=== PATIENT | female | born 1980 | race Caucasian/White ===

== ENCOUNTER 2017-05-05 23:17 | Emergency (ER) | payer OTHER ==
[~2017-05-05] VITALS: Ht 157.5 cm; Wt 56.7 kg
[~2017-05-05 23:17] MED LIST: IRON65TA11 PO; PREN-385 PO
[2017-05-05 23:32] VITALS: BP 124/82
[2017-05-05] MEDS ORDERED: PHEN100C3 PO (23:43)
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
--- NOTE | 2017-05-06 00:10 | NUR ---
ER MD AT BEDSIDE PERFORMING AN ULTRASOUND. NO S/S OF DISTRESS NOTED AT THE MOMENT. VSS.
[2017-05-06 00:28] VITALS: BP 123/82
--- NOTE | 2017-05-06 00:28 | NUR ---
Patient discharged with v/s stable. Written and verbal after care instructions given and explained. Patient verbalized understanding. Police with in custody. All questions addressed prior to discharge. Advised to follow up with OBGYN OR RETURN TO ER IF CONDITON WORSENS.
== END 2017-05-06 00:28 ==
LOC: MED 23:17
DX: O26.891 Other specified pregnancy related conditions, first trimester (principal); G40.909 Epilepsy, unspecified, not intractable, without status epilepticus; O09.521 Supervision of elderly multigravida, first trimester
CPT/HCPCS: 99283

== ENCOUNTER 2017-06-07 00:50 | Inpatient (IN) | payer OTHER ==
[~2017-06-07] VITALS: Ht 157.5 cm; Wt 59.0 kg
[~2017-06-07 00:50] MED LIST changes: +PHEN100C3 PO
[2017-06-07 00:58] VITALS: BP 117/72
--- NOTE | 2017-06-07 01:05 | NUR ---
PT TAKEN TO BED 6
--- NOTE | 2017-06-07 01:06 | NUR ---
PATIENT PRESENTS TO ED WITH EPIGASTRIC PAIN RADIATING TO HER BACK, STARTED 3 HOURS AGO,WITH NAUSEA. , LMP MARCH 12. DENIES N/V/D; SKIN IS PINK/WARM/DRY; AAOX4 WITH EVEN AND STEADY GAIT; LUNGS CLEAR BL; HR EVEN AND REGULAR; PT DENIES ANY FEVER, CP, SOB, OR COUGH AT THIS TIME; PATIENT STATES PAIN OF 10/10 AT THIS TIME; PATIENT POSITIONED FOR COMFORT; HOB ELEVATED; BEDRAILS UP X2; BED DOWN. ER MD MADE AWARE OF PT STATUS.
--- NOTE | 2017-06-07 01:22 | NUR ---
RELAYED TO DR. MOLINA RESULT OF URINE DIPSTICK
--- NOTE | 2017-06-07 01:37 | NUR ---
Dr. Lara evaluating patient at bedside.
[2017-06-07] MEDS ORDERED: NACL 0.9% 500 ML IV ONE (01:39)
[2017-06-07] MEDS ORDERED: ALUMINUM HYD/MAG/SIMETHICONE 30 ML UDC PO ONE (01:40)
[2017-06-07] MEDS ORDERED: LIDOCAINE VISCOUS 2% 20 ML UDC PO ONE (01:40)
[2017-06-07] MEDS ORDERED: ONDANSETRON 4 MG/2 ML VIAL IVP ONE (01:40)
[2017-06-07] MEDS ORDERED: KETOROLAC 30 MG/ML VIAL IVP ONE (01:40)
[2017-06-07 02:01] LABS: BASOPHILS # (AUTO) 0.1 K/uL (0.00-0.22); HEMATOCRIT 38.1 % (36-48)
[2017-06-07 02:03] LABS: BASOPHILS % (AUTO) 0.9 % (0.0-2.0); EOSINOPHILS # (AUTO) 0.4 K/uL (0-0.4); EOSINOPHILS % (AUTO) 3.5 % (0.0-4.0); HEMOGLOBIN 12.4 g/dL (12.0-16.0); LYMPHOCYTES # (AUTO) 1.2 K/uL (2.5-16.5); LYMPHOCYTES % (AUTO) 10.3 % (20.5-51.1); MEAN CORPUSCULAR HEMOGLOBIN 28 pg (27-31); MEAN CORPUSCULAR HGB CONC 33 g/dL (33-37); MEAN CORPUSCULAR VOLUME 84 fL (80-94); MONOCYTES # (AUTO) 0.5 K/uL (0.8-1.0); MONOCYTES % (AUTO) 4.3 % (1.7-9.3); NEUTROPHILS # (AUTO) 9.1 K/uL (1.8-7.7); PLATELET COUNT (AUTO) 242 K/uL (140-450); RED BLOOD CELL COUNT(AUTO) 4.52 MIL/uL (4.20-5.40); RED CELL DISTRIBUTION WIDTH 13.6 % (11.6-13.7); WHITE BLOOD COUNT (AUTO) 11.3 K/uL (4.8-10.8)
[2017-06-07 02:07] LABS: ANION GAP 10.3 (8-16); CALCIUM 8.6 mg/dL (8.5-10.1); CARBON DIOXIDE 29.7 mmol/L (21-32); CREATININE 0.5 mg/dL (0.6-1.3)
[2017-06-07 02:14] LABS: TOTAL BILIRUBIN 0.9 mg/dL (0.0-1.0); TOTAL PROTEIN, SERUM 7.2 g/dL (6.4-8.2)
--- NOTE | 2017-06-07 02:19 | NUR ---
PT RETURN FROM ULTRASOUND
--- NOTE | 2017-06-07 03:22 | NUR ---
Patient will be admitted to care of EDDI BISHOP. Admited to MED/SURG. Will go to room 120A. Belongings list completed. Report to BIJU BAUTISTA.
--- NOTE | 2017-06-07 03:30 | NUR ---
ADMITTED THIS 36 YEAR OLD FEMALE FROM ER PER ROZ WITH CC OF EPIGASTRIC/ABDOMINAL PAIN, ASSESSMENT DONE, VITAL SIGNS STABLE, DENIES ANY PAIN AT THIS TIME HAVING BEEN MEDICATED IN ER EARLIER, SKIN INTACT WITH MULTIPLE TATTOOS VICKY BUE, INSTRUCTED ON NPO STATUS, VERBALIZED UNDERSTANDING, SIDE RAILS UP AND PADDED FOR SEIZURE PRECAUTION, ORIENTED TO ROOM AND CALL LIGHT PLAN OF CARE DISCUSS, SAFETY MEASURES IN PLACE, CALL LIGHT WITHIN REACH.
[2017-06-07 03:40] VITALS: BP 115/70
[2017-06-07] MEDS: DEXT 5% /NACL 0.9% 1,000 ML IV SCH ×2 (03:47→13:15)
--- NOTE | 2017-06-07 04:00 | NUR ---
CALLED LABOR AND DELIVERY AND TALKED TO MARCO IF THEY CAN CHECK HEART TONE FOR 11 WEEKS , SHE SAID THAT IT NEEDS TO BE BY ULTRASOUND, CHARGE NURSE SURI MADE AWARE.
--- NOTE | 2017-06-07 05:20 | NUR ---
ULTRASOUND OF ABDOMEN DONE, TOLERATED WELL, DENIES ANY PAIN, MAINTAINED ON NPO, MONITORED CLOSELY.
--- NOTE | 2017-06-07 06:30 | NUR ---
SEEN PT SLEEPING, NO SIGNS OF PAIN, IVF INFUSING WELL, MONITORED CLOSELY.
--- NOTE | 2017-06-07 07:11 | NUR ---
PATIENT HAS BEEN SCREENED AND CATEGORIZED MODERATE NUTRITION RISK. PATIENT WILL BE SEEN WITHIN 3-5 DAYS OF ADMISSION. 06/09/17-06/11/17 SUHA JENSEN MS, RDN
--- NOTE | 2017-06-07 07:20 | NUR ---
PT SLEEPING, NO SIGNS OF DISTRESS, REPORT GIVEN TO LILY BASSETT FOR CONTINUITY OF CARE.
--- NOTE | 2017-06-07 07:25 | NUR ---
RECEIVED REPORT FROM LILY IVY. PT IS SLEEPING IN BED BUT EASILY AWAKEN, A/OX4, AMBULATORY, SKIN IS INTACT, IV ON THE LT AC, PATENT, INTACT, FLUSHING WELL, NO S/S OF RESPIRATORY DISTRESS OR DISCOMFORT NOTED, FALL/SAFETY PRECAUTIONS ARE IN PLACE, DISCUSSED PLAN OF CARE WITH PT, PT VERBALIZED UNDERSTANDING, CALL LIGHT WITHIN REACH, WILL CONTINUE TO MONITOR.
[2017-06-07 08:00] VITALS: BP 102/69
[2017-06-07] MEDS ORDERED: MORPHINE SULFATE 2 MG/ML SYR IVP PRN (08:50)
[2017-06-07] MEDS ORDERED: MORPHINE SULFATE 4 MG/ML SYR IVP PRN (08:50)
[2017-06-07] MEDS ORDERED: ALUMINUM HYD/MAG/SIMETHICONE 30 ML UDC PO PRN (09:00)
--- NOTE | 2017-06-07 09:25 | NUR ---
PT SLEEPING IN BED AT THIS TIME, CALL LIGHT WITHIN REACH.
--- NOTE | 2017-06-07 11:21 | NUR ---
PT OFF UNIT TAKEN TO OR FOR PROCEDURE.
[2017-06-07] MEDS ORDERED: PROPOFOL 200 MG/20 ML VIAL IV ONE (11:45)
[2017-06-07 13:08] VITALS: BP 98/67
--- NOTE | 2017-06-07 13:08 | NUR ---
PT RETURNED TO UNIT VIA GURNEY, PT IS IN STABLE CONDITION AT THIS TIME.
--- NOTE | 2017-06-07 15:10 | NUR ---
PT IS RESTING IN BED, NO S/S OF RESPIRATORY DISTRESS OR DISCOMFORT NOTED, FAMILY MEMBER IS AT BEDSIDE, CALL LIGHT WITHIN REACH.
--- NOTE | 2017-06-07 15:30 | NUR ---
PT STATED SHE WANTED TO GO HOME BECAUSE SHE WAS SCHEDULED TO BE IN COURT TOMORROW 06/07/17, I LET THE PATIENT KNOW I NEEDED TO CHECK WITH HER DOCTOR FIRST.
--- NOTE | 2017-06-07 15:35 | NUR ---
I LET CHARGE NURSE (OMARI) KNOW THE PATIENT WANTED TO GO HOME TODAY, PER OMARI SHE WILL CONTACT DR. WAGNER AND DR. MIRANDA TO LET THEM KNOW.
--- NOTE | 2017-06-07 15:45 | NUR ---
PER CHARGE NURSE, OMARI MIRANDA IS OKAY WITH THE PATIENT BEING DISCHARGED TODAY, OMARI SAID DR. WAGNER WOULD GO AHEAD AND DISCHARGE HER IF SHE FELT STABLE AND WOULD CALL IN A PRESCRIPTION TO THE PHARMACY FOR AMOXICILLIN. I WENT AHEAD AND NOTIFIED THE PATIENT.
[2017-06-07] MEDS ORDERED: AMOX500C25 PO (15:52)
[2017-06-07 16:00] VITALS: BP 103/68
--- NOTE | 2017-06-07 16:30 | NUR ---
PT DISCHARGE INSTRUCTIONS GIVEN, PT ID WRIST BAND REMOVED, IV REMOVED, CATHETER TIP INTACT, PT STABLE UPON DISCHARGE ACCOMPANIED BY FAMILY MEMBER.
--- NOTE | 2017-06-08 13:01 | NUR ---
RETRO REVIEW ER REPORT, H&P AND OPERATIVE REPORT FAXED TO [facility] [phone] PHONE DONAVON [phone]
== END 2017-06-07 16:30 | disposition home or self-care (01) | DRG 566 ==
LOC: MED 00:50 → MTU 02:56
PROVIDERS: ADMIT Hospitalist; ATTEND Hospitalist
PROC: BF101ZZ Fluoroscopy of Bile Ducts using Low Osmolar Contrast (ICD-10-PCS; 2017-06-07)
PROC: 0FC98ZZ Extirpation of Matter from Common Bile Duct, Via Natural or Artificial Opening Endoscopic (ICD-10-PCS; principal; 2017-06-07 11:30)
DX: O99.611 Diseases of the digestive system complicating pregnancy, first trimester (principal); K85.90 Acute pancreatitis without necrosis or infection, unspecified; O99.351 Diseases of the nervous system complicating pregnancy, first trimester; G40.909 Epilepsy, unspecified, not intractable, without status epilepticus; K80.30 Calculus of bile duct with cholangitis, unspecified, without obstruction; Z87.442 Personal history of urinary calculi; Z90.49 Acquired absence of other specified parts of digestive tract; Z3A.14 14 weeks gestation of pregnancy; Z87.898 Personal history of other specified conditions
CPT/HCPCS: 36415; 74330; 76705; 76801; 80053; 81025; 83690; 85025; 87081; 96361; 96374; 96375; 99285; C1769; J1885; J2405; J2704; J7030; J7042; Q0092

== ENCOUNTER 2017-09-29 20:23 | Emergency (ER) | payer OTHER ==
[~2017-09-29] VITALS: Ht 157.5 cm; Wt 65.8 kg
[~2017-09-29 20:23] MED LIST changes: +AMOX500C25 PO; -IRON65TA11 PO; -PHEN100C3 PO; -PREN-385 PO
[2017-09-29 20:30] VITALS: BP 107/65
[2017-09-29] MEDS ORDERED: PREN-546 PO (20:46)
[2017-09-29 21:05] LABS: BILIRUBIN,URINE NEGATIVE (NEGATIVE); BLOOD, URINE NEGATIVE (NEGATIVE); COLOR,URINE YELLOW (YELLOW); LEUKOCYTE ESTERASE ,URINE 1+ (NEGATIVE); NITRITE, URINE NEGATIVE (NEGATIVE); UGLUCOSE NEGATIVE (NEGATIVE)
[2017-09-29 21:06] LABS: APPEARANCE,URINE HAZY (CLEAR)
[2017-09-29 21:08] LABS: RBC,URINE 0-5 (RARE) /HPF (0-5)
[2017-09-29 21:09] LABS: WBC,URINE 16-25 (MOD) /HPF (0-5)
[2017-09-29 22:37] VITALS: BP 105/50
== END 2017-09-29 22:25 | disposition home or self-care (01) ==
LOC: MED 20:23
DX: O26.893 Other specified pregnancy related conditions, third trimester (principal); R07.89 Other chest pain; N39.0 Urinary tract infection, site not specified
CPT/HCPCS: 36415; 81001; 81025; 84484; 87086; 87186; 93005; 99285

== ENCOUNTER 2017-10-13 11:25 | Observation (INO) | payer OTHER ==
[~2017-10-13] VITALS: Ht 157.5 cm; Wt 65.8 kg
[~2017-10-13 11:25] MED LIST changes: -AMOX500C25 PO; +PREN-546 PO
[2017-10-13 12:14] VITALS: BP 114/67
[2017-10-13 12:25] LABS: APPEARANCE,URINE HAZY (CLEAR); BILIRUBIN,URINE NEGATIVE (NEGATIVE); BLOOD, URINE NEGATIVE (NEGATIVE); COLOR,URINE YELLOW (YELLOW); LEUKOCYTE ESTERASE ,URINE TRACE (NEGATIVE); NITRITE, URINE POSITIVE (NEGATIVE); PH,URINE 6.5 (5.0-9.0); UGLUCOSE NEGATIVE (NEGATIVE)
[2017-10-13 14:06] LABS: BARBITURATE, URINE NEG. ng/ml (NEG <=200); BENZODIAZEPINE, URINE NEG. ng/mL (NEG <=200); CANNABINOID, URINE NEG. ng/mL (NEG <=50); COCAINE, URINE NEG. ng/mL (NEG <=300); OPIATE, URINE NEG. ng/mL (NEG <=2000); PHENCYCLIDINE SCREEN,URINE NEG. ng/mL (NEG <=25)
--- NOTE | 2017-10-13 14:54 | NUR ---
PATIENT HAS BEEN SCREENED AND CATEGORIZED LOW NUTRITION RISK. PATIENT WILL BE SEEN WITHIN 7 DAYS OF ADMISSION. 10/19/[address]
[2017-10-13 15:54] LABS: RBC,URINE 0-5 (RARE) /HPF (0-5)
== END 2017-10-13 14:40 | disposition left against medical advice (07) ==
LOC: MLD 11:25
PROVIDERS: ADMIT Obstetrics & Gynecology; ATTEND Obstetrics & Gynecology
DX: O26.893 Other specified pregnancy related conditions, third trimester (principal); N89.8 Other specified noninflammatory disorders of vagina; Z3A.29 29 weeks gestation of pregnancy
CPT/HCPCS: 76805; 80305; 81001; 87086; G0378; Q0092; 87186

== ENCOUNTER 2018-11-03 15:57 | Emergency (ER) | payer MEDICAID, OTHER ==
[~2018-11-03] VITALS: Ht 157.5 cm; Wt 55.0 kg
[2018-11-03 16:12] VITALS: BP 113/75
--- NOTE | 2018-11-03 16:15 | NUR ---
PT AMBULATES BACK TO THE LOBBY
--- NOTE | 2018-11-03 16:37 | NUR ---
PT TAKEN OFF THE LOBBY VIA WHEEL CHAIR FOR XRAY ON HER RT HAND BY CHILD DEVELOPMENT PROFESSOR
--- NOTE | 2018-11-03 18:30 | NUR ---
DR CASTELLANOS AT BEDSIDE. TO REMOVE RING FROM PATIENTS SWOLLEN MIDDLE FINGER.
[2018-11-03 18:51] VITALS: BP 113/75
--- NOTE | 2018-11-03 18:52 | NUR ---
Patient discharged with v/s stable. Written and verbal after care instructions given and explained. Patient verbalized understanding. Ambulatory with steady gait. All questions addressed prior to discharge. Advised to follow up with PMD.
== END 2018-11-03 18:52 | disposition home or self-care (01) ==
LOC: MED 15:57
DX: S60.452A Superficial foreign body of right middle finger, initial encounter (principal); Z79.899 Other long term (current) drug therapy; X58.XXXA Exposure to other specified factors, initial encounter; Y93.89 Activity, other specified; Y92.89 Other specified places as the place of occurrence of the external cause; Y99.8 Other external cause status
CPT/HCPCS: 73130; 99284

== ENCOUNTER 2019-01-01 19:12 | Emergency (ER) | payer MEDICAID, OTHER ==
[~2019-01-01] VITALS: Ht 157.5 cm; Wt 56.7 kg
[2019-01-01 19:23] VITALS: BP 124/80
--- NOTE | 2019-01-01 19:24 | NUR ---
TO BED # 4 AMBULATORY. REPORT GIVEN TO WAYNE BAUTISTA.
--- NOTE | 2019-01-01 19:38 | NUR ---
38/F presents to ED with complaints of dizziness with nausea and vomiting, with head pain s/p hitting head on fridge 2 days ago. Denies LOC. Denies recent seizure. AOX4, ambulatory with steady gait. VSS. NAD noted. No signs of respiratory distress. Family at bedside.
--- NOTE | 2019-01-01 20:14 | NUR ---
Dr. Stacy evaluating patient at bedside.
[2019-01-01] MEDS ORDERED: MECLIZINE 25 MG TAB PO ONE (20:20)
--- NOTE | 2019-01-01 21:01 | NUR ---
Patient expresses feeling better after medication. Dr. Stacy made aware.
[2019-01-01 21:17] VITALS: BP 124/80
--- NOTE | 2019-01-01 21:17 | NUR ---
Patient discharged with v/s stable. Written and verbal after care instructions given and explained. Patient alert, oriented and verbalized understanding of instructions. Ambulatory with steady gait. All questions addressed prior to discharge. ID band removed. Patient advised to follow up with PMD. Rx of Motrin 600mg, Zofran 8mg and Meclizine Hydrochloride 25mg given. Patient educated on indication of medication including possible reaction and side effects. Opportunity to ask questions provided and answered.
== END 2019-01-01 21:17 | disposition home or self-care (01) ==
LOC: MED 19:12
DX: R42 Dizziness and giddiness (principal); R51 Headache; R11.2 Nausea with vomiting, unspecified; M54.2 Cervicalgia; F17.200 Nicotine dependence, unspecified, uncomplicated; Z79.899 Other long term (current) drug therapy; Z90.49 Acquired absence of other specified parts of digestive tract
CPT/HCPCS: 99283; J8597

== ENCOUNTER 2019-03-01 07:25 | Emergency (ER) | payer SELFPAY ==
[~2019-03-01] VITALS: Ht 157.5 cm; Wt 55.4 kg
[2019-03-01 07:35] VITALS: BP 114/65
--- NOTE | 2019-03-01 07:45 | NUR ---
PT AMB TO BED 11.
--- NOTE | 2019-03-01 07:51 | NUR ---
Patient being evaluated by DR SANCHEZ at bedside.
[2019-03-01] MEDS ORDERED: ACETAMINOPHEN 325 MG TAB PO ONE (07:55)
[2019-03-01 08:12] VITALS: BP 124/84
== END 2019-03-01 08:12 | disposition home or self-care (01) ==
LOC: MED 07:25
DX: S09.90XA Unspecified injury of head, initial encounter (principal); F17.210 Nicotine dependence, cigarettes, uncomplicated; Z79.899 Other long term (current) drug therapy; Y04.0XXA Assault by unarmed brawl or fight, initial encounter; Y93.89 Activity, other specified; Y92.89 Other specified places as the place of occurrence of the external cause; Y99.8 Other external cause status
CPT/HCPCS: 81002; 81025; 99282

== ENCOUNTER 2019-05-12 13:10 | Emergency (ER) | payer MEDICAID ==
[~2019-05-12] VITALS: Ht 157.5 cm; Wt 64.4 kg
[2019-05-12 13:13] VITALS: BP 125/79
--- NOTE | 2019-05-12 13:21 | NUR ---
PT AMBULATED TO ER BED 11
--- NOTE | 2019-05-12 13:25 | NUR ---
PT REPORTS FINDING OUT SHE WAS 2 DAYS AGO, THEN ATE [facility] AND HAS HAD RUQ ABD PAIN THAT HAS CAUSED DIFFICULTY BREATHING ALONG WITH INTERMITENT SHARP MIDSTERNAL CP. PT ADMITS TO METH USE 2 DAYS AGO. , LMP 03/23/19. STATES TO HAVE PAIN 06/01 . EKG AT BEDSIDE. US AT BEDSIDE. MEDHX:SIEZURE RX:PHENOBARBITOL
[2019-05-12 14:09] LABS: BASOPHILS # (AUTO) 0.1 K/uL (0.00-0.22); BASOPHILS % (AUTO) 0.7 % (0.0-2.0); EOSINOPHILS # (AUTO) 0.2 K/uL (0-0.4); EOSINOPHILS % (AUTO) 2.3 % (0.0-4.0); HEMATOCRIT 36.8 % (36-48); LYMPHOCYTES # (AUTO) 2.9 K/uL (2.5-16.5); LYMPHOCYTES % (AUTO) 37.4 % (20.5-51.1); MEAN CORPUSCULAR HEMOGLOBIN 28 pg (27-31); MEAN CORPUSCULAR HGB CONC 33 g/dL (33-37); MEAN CORPUSCULAR VOLUME 84.7 fL (80-94); MONOCYTES # (AUTO) 0.5 K/uL (0.8-1.0); MONOCYTES % (AUTO) 6.8 % (1.7-9.3); NEUTROPHILS # (AUTO) 4.1 K/uL (1.8-7.7); NEUTROPHILS % (AUTO) 52.8 % (42.2-75.2); PLATELET COUNT (AUTO) 211 K/uL (140-450); RED BLOOD CELL COUNT(AUTO) 4.34 MIL/uL (4.20-5.40); RED CELL DISTRIBUTION WIDTH 14.4 % (11.6-13.7); WHITE BLOOD COUNT (AUTO) 7.8 K/uL (4.8-10.8)
[2019-05-12 14:13] LABS: APPEARANCE,URINE SL CLOUDY (CLEAR); BILIRUBIN,URINE NEGATIVE (NEGATIVE); BLOOD, URINE TRACE-I (NEGATIVE); COLOR,URINE YELLOW (YELLOW); LEUKOCYTE ESTERASE ,URINE NEGATIVE (NEGATIVE); NITRITE, URINE POSITIVE (NEGATIVE); UGLUCOSE NEGATIVE (NEGATIVE)
[2019-05-12 14:17] LABS: ANION GAP 9.9 (8-16); CARBON DIOXIDE 27.2 mmol/L (21-32); CREATININE 0.5 mg/dL (0.6-1.3); POTASSIUM 4.1 mmol/L (3.5-5.1)
[2019-05-12 14:22] LABS: ALBUMIN 3.2 g/dL (3.4-5.0); TOTAL BILIRUBIN 0.3 mg/dL (0.0-1.0)
[2019-05-12] MEDS ORDERED: PHEN-1438 PO ×2 (14:27→14:30)
[2019-05-12 14:38] LABS: RBC,URINE 0-5 /HPF (0-5); URINE AMORPHOUS URATE 2+ /HPF (None Seen); WBC,URINE 0-5 /HPF (0-5)
--- NOTE | 2019-05-12 15:00 | NUR ---
US AT THE BEDSIDE.
[2019-05-12 15:15] LABS: BARBITURATE, URINE NEG. ng/ml (NEG <=200); BENZODIAZEPINE, URINE NEG. ng/mL (NEG <=200); CANNABINOID, URINE NEG. ng/mL (NEG <=50); COCAINE, URINE NEG. ng/mL (NEG <=300); OPIATE, URINE NEG. ng/mL (NEG <=2000); PHENCYCLIDINE SCREEN,URINE NEG. ng/mL (NEG <=25)
[2019-05-12 18:04] VITALS: BP 111/67
--- NOTE | 2019-05-12 18:04 | NUR ---
Patient discharged with v/s stable. Written and verbal after care instructions given and explained. Patient alert, oriented and verbalized understanding of instructions. Ambulatory with steady gait. All questions addressed prior to discharge. ID band removed. Opportunity to ask questions provided and answered.
== END 2019-05-12 18:04 | disposition home or self-care (01) ==
LOC: MED 13:10
DX: O26.891 Other specified pregnancy related conditions, first trimester (principal); O99.321 Drug use complicating pregnancy, first trimester; R07.89 Other chest pain; R10.11 Right upper quadrant pain; F15.10 Other stimulant abuse, uncomplicated; Z3A.01 Less than 8 weeks gestation of pregnancy; Z79.899 Other long term (current) drug therapy
CPT/HCPCS: 36415; 76705; 76801; 80053; 80305; 81001; 81025; 83690; 84484; 84702; 85025; 87086; 93005; 99284; Q0092

== ENCOUNTER 2020-11-10 01:04 | Emergency (ER) | payer MEDICAID ==
[~2020-11-10] VITALS: Ht 157.5 cm; Wt 56.7 kg
[~2020-11-10 01:04] MED LIST changes: +PHEN-1438 PO
[2020-11-10 01:10] VITALS: BP 110/82
--- NOTE | 2020-11-10 01:13 | NUR ---
TO LOBBY A/W BED AMBULATORY
--- NOTE | 2020-11-10 02:11 | NUR ---
Patient discharged with v/s stable. Written and verbal after care instructions given and explained. Patient alert, oriented and verbalized understanding of instructions. Ambulatory with steady gait. All questions addressed prior to discharge. ID band removed. Patient advised to follow up with PMD. Rx of ciloxan given. Patient educated on indication of medication including possible reaction and side effects. Opportunity to ask questions provided and answered.
== END 2020-11-10 02:11 | disposition home or self-care (01) ==
LOC: MED 01:04
DX: S05.01XA Injury of conjunctiva and corneal abrasion without foreign body, right eye, initial encounter (principal); S05.02XA Injury of conjunctiva and corneal abrasion without foreign body, left eye, initial encounter; Z79.899 Other long term (current) drug therapy; X58.XXXA Exposure to other specified factors, initial encounter; Y93.89 Activity, other specified; Y92.89 Other specified places as the place of occurrence of the external cause; Y99.8 Other external cause status
CPT/HCPCS: 99283

== ENCOUNTER 2021-02-06 18:55 | Emergency (ER) | payer MEDICAID ==
[~2021-02-06] VITALS: Ht 157.5 cm; Wt 61.2 kg
[2021-02-06 18:56] VITALS: BP 116/78
--- NOTE | 2021-02-06 19:05 | NUR ---
PT W/C ASSISTED TO BED 7.
[2021-02-06] MEDS ORDERED: KETOROLAC 60 MG/2 ML VIAL IM ONE (19:10)
[2021-02-06] MEDS ORDERED: IBUP-2213 PO (19:13)
--- NOTE | 2021-02-06 19:28 | NUR ---
PATIENT BIB SELF C/O LOWER LEFT LEG PAIN X 3 DAYS, PAIN 10/10. PATIENT DESCRIBES PAIN CONSTANT. 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 PATIENT DENIES AT HOME MEDICATIONS TO RELIEVE PAIN. PATIENT DENIES INJURY TO LLE. SEE COMPLETED ASSESSMENT FOR FURTHER DETAILS. MED HX: NONE. ALLERGIES: NKA SURG HX: GALLBLADDER,
[2021-02-06 19:41] VITALS: BP 116/78
== END 2021-02-06 19:41 | disposition home or self-care (01) ==
LOC: MED 18:55
DX: M79.605 Pain in left leg (principal); F17.200 Nicotine dependence, unspecified, uncomplicated; Z90.49 Acquired absence of other specified parts of digestive tract; Z98.890 Other specified postprocedural states; Z79.899 Other long term (current) drug therapy
CPT/HCPCS: 96372; 99283; J1885

== ENCOUNTER 2021-07-06 23:41 | Emergency (ER) | payer MEDICAID ==
[~2021-07-06] VITALS: Ht 157.5 cm; Wt 61.2 kg
[~2021-07-06 23:41] MED LIST changes: +IBUP-2213 PO
[2021-07-06 23:45] VITALS: BP 134/80
--- NOTE | 2021-07-06 23:45 | NUR ---
TO BED AMBULATORY
--- NOTE | 2021-07-07 00:15 | NUR ---
40 YO F BIB SELF WITH C/C OF 10/10 PRESSURE-LIKE L FLANK PAIN X1.5 HRS. PAIN IN NONRAD AND CONSTANT. SITTING UP MAKES IT WORSE. PT DENIES TAKING ANYTHING FOR PAIN. - N/V/D AND FEVER. PT DENIES BURNING DURING URINATION BUT FEELS SHE NEEDS TO URINATE MORE OFTEN. HX: SEIZURES, PADS IN PLACE RX: VALPROIC ACID NKA
[2021-07-07] MEDS ORDERED: KETOROLAC 30 MG/ML VIAL IVP ONE (00:55)
[2021-07-07] MEDS ORDERED: NACL 0.9% 1,000 ML IV ONE (00:55)
[2021-07-07] MEDS ORDERED: MORPHINE SULFATE 4 MG/ML SYR IVP ONE (00:55)
[2021-07-07 01:22] LABS: ALBUMIN 3.4 g/dL (3.4-5.0); ANION GAP 7.4 (8-16); CARBON DIOXIDE 29.8 mmol/L (21-32); CREATININE 0.7 mg/dL (0.6-1.3); POTASSIUM 4.2 mmol/L (3.5-5.1); TOTAL BILIRUBIN 0.1 mg/dL (0.0-1.0)
[2021-07-07 01:25] LABS: BASOPHILS # (AUTO) 0.1 K/uL (0.00-0.22); BASOPHILS % (AUTO) 0.6 % (0.0-2.0); EOSINOPHILS # (AUTO) 0.4 K/uL (0-0.4); EOSINOPHILS % (AUTO) 3.4 % (0.0-4.0); HEMATOCRIT 39.2 % (36-48); HEMOGLOBIN 12.7 g/dL (12.0-16.0); LYMPHOCYTES % (AUTO) 36.9 % (20.5-51.1); MEAN CORPUSCULAR HEMOGLOBIN 27 pg (27-31); MEAN CORPUSCULAR HGB CONC 32 g/dL (33-37); MEAN CORPUSCULAR VOLUME 84.1 fL (80-94); MONOCYTES # (AUTO) 0.6 K/uL (0.8-1.0); MONOCYTES % (AUTO) 5.5 % (1.7-9.3); NEUTROPHILS # (AUTO) 5.8 K/uL (1.8-7.7); NEUTROPHILS % (AUTO) 53.6 % (42.2-75.2); PLATELET COUNT (AUTO) 253 K/uL (140-450); RED BLOOD CELL COUNT(AUTO) 4.66 MIL/uL (4.20-5.40); RED CELL DISTRIBUTION WIDTH 14.4 % (11.6-13.7); WHITE BLOOD COUNT (AUTO) 10.8 K/uL (4.8-10.8)
[2021-07-07] MEDS ORDERED: LORazepam 2 MG/ML VIAL IVP ONE (01:55)
--- NOTE | 2021-07-07 02:00 | NUR ---
PT HAD A SEIZURE LASTING ABOUT 1 MINUTES FROM WHEN I SAW. UNKNOWN ONSET. RAIZA HOWE MADE AWARE, STATED TO HOLD MEDICATION BECAUSE SEIZURE STOPPED. ORDERS CARRIED OUT. PT IS IN STABLE CONDITION. VSS. PT IS UNRESPONSIVE AT THIS TIME.
--- NOTE | 2021-07-07 02:46 | NUR ---
PT IS AWAKE. REORIENTED. STATED SHE JUST FEELS TIRED. VSS.
--- NOTE | 2021-07-07 03:29 | NUR ---
PT TAKEN TO CT VIA RPADILLA.
--- NOTE | 2021-07-07 03:41 | NUR ---
PT BACK FROM CT.
--- NOTE | 2021-07-07 04:09 | NUR ---
PT IS SLEEPING. EQUAL RISE AND FALL OF CHEST WALL. OPENS EYES TO TOUCH. VSS. ALL NEEDS MET AT THIS TIME. BED LOCKED IN LOWEST POSITION, SIDE RAILS X2.
[2021-07-07 05:10] VITALS: BP 116/78
== END 2021-07-07 05:10 | disposition home or self-care (01) ==
LOC: MED 23:41
DX: N23 Unspecified renal colic (principal); Z79.899 Other long term (current) drug therapy
CPT/HCPCS: 36415; 74176; 80053; 81002; 81025; 83690; 85025; 96361; 96374; 96375; 99284; J1885; J2270; J7030

== ENCOUNTER 2021-07-17 21:59 | Emergency (ER) | payer MEDICAID ==
[~2021-07-17 21:59] MED LIST changes: -PHEN-1438 PO; +PHEN-2099 PO
--- NOTE | 2021-07-17 23:11 | NUR ---
CALLED IN LOBBY AND OUTSIDE WITH NO ANSWER
--- NOTE | 2021-07-17 23:22 | NUR ---
CALLED IN LOBBY AND OUTSIDE WITH NO ANSWER
--- NOTE | 2021-07-17 23:30 | NUR ---
CALLED IN LOBBY AND OUTSIDE WITH NO ANSWER.PATIENT LEFT WITHOUT BEING SEEN BY DR. RUFF. NO FURTHER CARE PROVIDED FOR PATIENT.
== END 2021-07-17 23:11 | disposition left against medical advice (07) ==
LOC: MED 21:59
DX: R56.9 Unspecified convulsions (principal); Z53.21 Procedure and treatment not carried out due to patient leaving prior to being seen by health care provider

== ENCOUNTER 2021-12-04 21:18 | Emergency (ER) | payer MEDICAID ==
[~2021-12-04] VITALS: Ht 157.5 cm; Wt 64.4 kg
[2021-12-04 21:27] VITALS: BP 133/78
--- NOTE | 2021-12-04 21:41 | NUR ---
PT IN LOBBY.
[2021-12-04] MEDS ORDERED: diphenhydrAMINE 50 MG/ML VIAL IM ONE (23:20)
[2021-12-04] MEDS ORDERED: PROCHLORPERAZINE 10 MG/2 ML VIAL IM ONE (23:20)
[2021-12-04] MEDS ORDERED: KETOROLAC 60 MG/2 ML VIAL IM ONE (23:20)
[2021-12-05] MEDS ORDERED: diphenhydrAMINE 50 MG/ML VIAL ONE (00:35)
--- NOTE | 2021-12-05 00:40 | NUR ---
CALLED PT IN LOBBY FOR MEDICATION NO ANSWER.
--- NOTE | 2021-12-05 00:47 | NUR ---
CALLED PT IN LOBBY AND OUTSIDE FOR MEDICATION NO ANSWER. CALLED PT'S CELL PHONE, WENT TO [employer].
[2021-12-05 00:51] VITALS: BP 133/78
--- NOTE | 2021-12-05 00:51 | NUR ---
Patient discharged with v/s stable. Written and verbal after care instructions given and explained. Patient verbalized understanding. Ambulatory with steady gait. All questions addressed prior to discharge. Advised to follow up with PMD. PT LEFT WITHOUT PAPER WORK.
== END 2021-12-05 00:51 | disposition home or self-care (01) ==
LOC: MED 21:18
DX: S09.90XA Unspecified injury of head, initial encounter (principal); Z79.899 Other long term (current) drug therapy; W22.8XXA Striking against or struck by other objects, initial encounter; Y93.89 Activity, other specified; Y92.89 Other specified places as the place of occurrence of the external cause; Y99.0 Civilian activity done for income or pay
CPT/HCPCS: 70450; 81025; 99284; J0780; J1200; J1885

== ENCOUNTER 2022-01-23 08:30 | Emergency (ER) | payer MEDICAID ==
[~2022-01-23] VITALS: Ht 157.5 cm; Wt 67.1 kg
[2022-01-23 08:42] VITALS: BP 128/84
--- NOTE | 2022-01-23 09:00 | NUR ---
PATIENT AMBULATED TO BED 9
--- NOTE | 2022-01-23 09:08 | NUR ---
41/F BIB SELF , AMBULATORY, C/O SORE THROAT PAIN RADIATING TO THE LEFT EAR X1 WEEK. PATIENT STATED THAT THE PAIN IS CONSTANT 10/10 AND IT IS HARD TO SWALLOW AND EAT. PATIENT DENIES N/V/D/C, CP, AND SOB AT THIS TIME. PMHX: SEIZURES MEDS: MARLINE YUN
--- NOTE | 2022-01-23 10:01 | NUR ---
DR. DUFF AT BEDSIDE
[2022-01-23] MEDS ORDERED: KETOROLAC 60 MG/2 ML VIAL IM ONE (10:05)
[2022-01-23] MEDS ORDERED: PENICILLIN G BENZATHINE L-A 1.2 MU/2 ML SYR IM ONE (10:05)
[2022-01-23] MEDS ORDERED: PRED20TA5 PO (10:13)
[2022-01-23] MEDS ORDERED: IBUP-2213 PO (10:13)
--- NOTE | 2022-01-23 10:30 | NUR ---
PATIENT STABLE IN BED AT THIS TIME,ALL NEEDS MET
[2022-01-23 10:40] VITALS: BP 126/78
--- NOTE | 2022-01-23 10:40 | NUR ---
Patient discharged with v/s stable. Written and verbal after care instructions given on strep throat and explained. Patient alert, oriented and verbalized understanding of instructions. Ambulatory with steady gait. All questions addressed prior to discharge. ID band removed. Patient advised to follow up with PMD. Rx of Ibuprofen and Prednisone given.
--- NOTE | 2022-01-23 10:58 | NUR ---
The patient's care was reviewed and supervised by Ankita Robertson RN.
== END 2022-01-23 10:58 | disposition home or self-care (01) ==
LOC: MED 08:30
DX: J02.0 Streptococcal pharyngitis (principal); H92.02 Otalgia, left ear; F17.200 Nicotine dependence, unspecified, uncomplicated; Z90.49 Acquired absence of other specified parts of digestive tract; Z98.890 Other specified postprocedural states; Z79.899 Other long term (current) drug therapy
CPT/HCPCS: 81025; 96372; 99284; J0561; J1885

== ENCOUNTER 2022-08-09 08:04 | Emergency (ER) | payer MEDICAID ==
[~2022-08-09] VITALS: Ht 157.5 cm; Wt 59.9 kg
[~2022-08-09 08:04] MED LIST changes: +PRED20TA5 PO
[2022-08-09 08:07] VITALS: BP 112/79
--- NOTE | 2022-08-09 08:14 | NUR ---
PT AMB TO BED 3.
[2022-08-09] MEDS ORDERED: KETOROLAC 60 MG/2 ML VIAL IM ONE ×2 (08:20→08:23)
--- NOTE | 2022-08-09 08:20 | NUR ---
41YO FEMALE PT C/O THROBBING/SHARP 09/01 TOOTHACHE X3DAYS. PT STATES "CRACK IN TOOTH" AND HAS UPCOMING DENTAL APPT NEXT WEEK BUT CAME TO ER DUE TO INCREASED PAIN. MILD RELIEF AFTER TAKING MOTRIN. DENIES N/V/D, CHEST PAIN OR SOB. PT AAOX4, NO VISIBLE DISTRESS. RESPIRATIONS EVEN AND UNLABORED. HX:SEIZURES NKA
--- NOTE | 2022-08-09 08:24 | NUR ---
MD ESPINOZA AT BEDSIDE FOR EVALUATION
[2022-08-09] MEDS ORDERED: IBUP-2213 PO (08:32)
[2022-08-09] MEDS ORDERED: ACET-8386 PO (08:32)
--- NOTE | 2022-08-09 08:45 | NUR ---
Patient discharged with v/s stable. Written and verbal after care instructions FOR DENTAL ABSCESS given and explained. Patient alert, oriented and verbalized understanding of instructions. Ambulatory with steady gait. All questions addressed prior to discharge. ID band removed. Patient advised to follow up with PMD. Rx of HYDROCODONE AND IBUPROFEN given. Opportunity to ask questions provided and answered.
--- NOTE | 2022-08-09 09:52 | NUR ---
The patient's care was reviewed and supervised by ED Agency Nurse 9, RN, RN.
== END 2022-08-09 08:45 | disposition home or self-care (01) ==
LOC: MED 08:04
DX: K08.89 Other specified disorders of teeth and supporting structures (principal); F17.200 Nicotine dependence, unspecified, uncomplicated
CPT/HCPCS: 81025; 99283; J1885

== ENCOUNTER 2023-01-09 05:05 | Emergency (ER) | payer MEDICAID ==
[~2023-01-09] VITALS: Ht 157.5 cm; Wt 61.2 kg
[~2023-01-09 05:05] MED LIST changes: +ACET-8905 PO
[2023-01-09 05:20] VITALS: BP 132/81
--- NOTE | 2023-01-09 05:24 | NUR ---
TO LOBBY FOLLOWING TRIAGE
[2023-01-09] MEDS ORDERED: HYDROcodone/APAP 5/325 MG 1 TAB TAB PO ONE (06:25)
[2023-01-09] MEDS ORDERED: ACET-8905 PO (06:25)
[2023-01-09] MEDS ORDERED: PENI500T20 PO (06:25)
[2023-01-09] MEDS ORDERED: NAPR-1704 PO (06:25)
[2023-01-09 06:30] VITALS: BP 132/81
--- NOTE | 2023-01-09 06:30 | NUR ---
Patient discharged with v/s stable. Written and verbal after care instructions given and explained. Patient alert, oriented and verbalized understanding of instructions. Ambulatory with steady gait. All questions addressed prior to discharge. ID band removed. Patient advised to follow up with PMD. Rx of HYDROCODONE, NAPROSYN, PENICILLIN given. Patient educated on indication of medication including possible reaction and side effects. Opportunity to ask questions provided and answered.
== END 2023-01-09 06:30 | disposition home or self-care (01) ==
LOC: MED 05:05
DX: K04.7 Periapical abscess without sinus (principal); K12.2 Cellulitis and abscess of mouth; F17.210 Nicotine dependence, cigarettes, uncomplicated
CPT/HCPCS: 99283

== ENCOUNTER 2023-05-13 04:05 | Emergency (ER) | payer MEDICAID ==
[~2023-05-13] VITALS: Ht 157.5 cm; Wt 63.5 kg
[~2023-05-13 04:05] MED LIST changes: +NAPR-1704 PO; +PENI500T20 PO
[2023-05-13 04:08] VITALS: BP 133/87; PULSE 90; RESP 18; TEMP 97.7; O2SAT 100
--- NOTE | 2023-05-13 04:12 | NUR ---
pt ambulatory to bed 11
[2023-05-13] MEDS ORDERED: EPINEPHrine 1 MG/ML AMP IM ONE (04:15)
[2023-05-13 04:23] VITALS: BP 127/83; PULSE 96; RESP 16; TEMP 97.7
[2023-05-13 04:24] VITALS: O2SAT 100
--- NOTE | 2023-05-13 05:01 | NUR ---
Dr. Logan examining patient.
[2023-05-13] MEDS ORDERED: NITR100C7 PO (05:29)
[2023-05-13] MEDS ORDERED: LABE100T63 PO (05:29)
--- NOTE | 2023-05-13 05:40 | NUR ---
Patient discharged by ER MD Logan.
== END 2023-05-13 05:40 | disposition home or self-care (01) ==
LOC: MED 04:05
DX: T78.1XXA Other adverse food reactions, not elsewhere classified, initial encounter (principal); Z91.018 Allergy to other foods; Z79.899 Other long term (current) drug therapy; X58.XXXA Exposure to other specified factors, initial encounter
CPT/HCPCS: 96372; 99283; J0171

== ENCOUNTER 2023-07-30 16:19 | Emergency (ER) | payer MEDICAID ==
[~2023-07-30] VITALS: Ht 157.5 cm; Wt 65.4 kg
[2023-07-30 16:30] VITALS: BP 130/79; PULSE 84; RESP 20; TEMP 98.2; O2SAT 98
[2023-07-30 17:29] LABS: BASOPHILS # (AUTO) 0.1 K/uL (0.00-0.22); BASOPHILS % (AUTO) 0.8 % (0.0-2.0); EOSINOPHILS # (AUTO) 0.3 K/uL (0-0.4); EOSINOPHILS % (AUTO) 3.3 % (0.0-4.0); HEMATOCRIT 36.7 % (36-48); HEMOGLOBIN 11.9 g/dL (12.0-16.0); LYMPHOCYTES # (AUTO) 3.2 K/uL (2.5-16.5); LYMPHOCYTES % (AUTO) 37.9 % (20.5-51.1); MEAN CORPUSCULAR HEMOGLOBIN 27 pg (27-31); MEAN CORPUSCULAR HGB CONC 32 g/dL (33-37); MEAN CORPUSCULAR VOLUME 83.1 fL (80-94); MONOCYTES # (AUTO) 0.5 K/uL (0.8-1.0); MONOCYTES % (AUTO) 5.5 % (1.7-9.3); NEUTROPHILS # (AUTO) 4.5 K/uL (1.8-7.7); NEUTROPHILS % (AUTO) 52.5 % (42.2-75.2); PLATELET COUNT (AUTO) 264 K/uL (140-450); RED BLOOD CELL COUNT(AUTO) 4.42 MIL/uL (4.20-5.40); RED CELL DISTRIBUTION WIDTH 14.3 % (11.6-13.7); WHITE BLOOD COUNT (AUTO) 8.5 K/uL (4.8-10.8)
[2023-07-30 17:43] VITALS: BP 130/79; PULSE 84; RESP 20; TEMP 98.2
[2023-07-30 17:47] LABS: ALBUMIN 3.4 g/dL (3.4-5.0); CALCIUM 8.9 mg/dL (8.5-10.1); CARBON DIOXIDE 29.3 mmol/L (21-32); CREATININE 0.6 mg/dL (0.6-1.3); POTASSIUM 3.3 mmol/L (3.5-5.1); TOTAL BILIRUBIN 0.3 mg/dL (0.0-1.0); TOTAL PROTEIN, SERUM 7.2 g/dL (6.4-8.2)
[2023-07-30 18:07] VITALS: O2SAT 84
[2023-07-30] MEDS ORDERED: CEPH-588 PO (19:00)
[2023-07-30] MEDS ORDERED: ONDA-188 PO (19:00)
== END 2023-07-30 19:29 | disposition home or self-care (01) ==
LOC: MED 16:19
DX: N39.0 Urinary tract infection, site not specified (principal); R53.83 Other fatigue; F15.10 Other stimulant abuse, uncomplicated; G40.909 Epilepsy, unspecified, not intractable, without status epilepticus; Z79.899 Other long term (current) drug therapy; Z91.018 Allergy to other foods
CPT/HCPCS: 36415; 71045; 80053; 81002; 81025; 85025; 87086; 93005; 99285